=== PATIENT | female | born 1935 ===

== ENCOUNTER 2021-12-18 14:46 | Emergency (ER) | payer OTHER ==
[~2021-12-18] VITALS: Ht 162.6 cm; Wt 76.2 kg
== END 2021-12-18 19:07 | disposition home or self-care (01) ==
LOC: ER 14:46
DX: S89.91XA Unspecified injury of right lower leg, initial encounter (principal); W19.XXXA Unspecified fall, initial encounter; Y93.9 Activity, unspecified; Y92.9 Unspecified place or not applicable; M85.861 Other specified disorders of bone density and structure, right lower leg